=== PATIENT | female | born 1980 | race Caucasian/White ===

== ENCOUNTER 2016-08-02 21:54 | Inpatient (IN) | payer OTHER ==
[~2016-08-02] VITALS: Ht 160 cm; Wt 61.7 kg
[~2016-08-02 21:54] MED LIST: ROPIVACAINE 40 MG/20 ML AMP EP ONE
[2016-08-02] MEDS ORDERED: LR 1,000 ML IV SCH (22:07)
[2016-08-02] MEDS ORDERED: LR 1,000 ML IV ONE (22:07)
[2016-08-02] MEDS ORDERED: NALBUPHINE HCL 10 MG/ML AMP IVP PRN (22:15)
[2016-08-02 22:25] LABS: BASOPHILS % (AUTO) 0.2 % (0.0-2.0); EOSINOPHILS % (AUTO) 0.1 % (0.0-4.0); HEMATOCRIT 39.9 % (36-48); HEMOGLOBIN 13.6 g/dL (12.0-16.0); LYMPHOCYTES # (AUTO) 1.5 K/uL (1.0-5.5); LYMPHOCYTES % (AUTO) 8.4 % (20.5-51.5); MEAN CORPUSCULAR HEMOGLOBIN 27 pg (27-31); MEAN CORPUSCULAR HGB CONC 34 % (32-36); MEAN CORPUSCULAR VOLUME 79 fL (79.0-98.0); MONOCYTES # (AUTO) 0.8 K/uL (0.0-1.0); MONOCYTES % (AUTO) 4.5 % (1.7-9.3); NEUTROPHILS % (AUTO) 86.8 % (40.0-70.0); PLATELET COUNT (AUTO) 234 K/uL (130-430); RED BLOOD CELL COUNT(AUTO) 5.02 MIL/uL (4.2-6.2); RED CELL DISTRIBUTION WIDTH 13.9 % (9.0-15.0); WHITE BLOOD COUNT (AUTO) 18.3 K/uL (4.8-10.8)
[2016-08-02] MEDS ORDERED: fentaNYL CITRATE/PF 100 MCG/2 ML AMP ONE (22:55)
[2016-08-02] MEDS ORDERED: FENT2mCg/mL-ROPIVA0.2%/NS EPID 150 ML EP ONE (22:57)
[2016-08-02] MEDS: OXYTOCIN/NORMAL SALINE 1,000 ML IV SCH (23:35)
[2016-08-02] MEDS ORDERED: LR 500 ML IV ONE (23:52)
[2016-08-02] MEDS ORDERED: CITRIC ACID/SODIUM CITRATE 30 ML UDC ONE (23:58)
[2016-08-03] MEDS ORDERED: ePHEDrine sulfate 50 MG/ML VIAL IVP PRN
[2016-08-03] MEDS ORDERED: FENT2mCg/mL-ROPIVA0.2%/NS EPID 150 ML EP SCH
[2016-08-03] MEDS ORDERED: fentaNYL CITRATE/PF 100 MCG/2 ML AMP EP ONE
[2016-08-03 01:57] VITALS: BP 129/86; RESP 18; TEMP 98.3
[2016-08-03] MEDS: OXYTOCIN/NORMAL SALINE 1,000 ML IV SCH (02:48)
[2016-08-03] MEDS ORDERED: CITRIC ACID/SODIUM CITRATE 30 ML UDC PO ONE (03:00)
[2016-08-03] MEDS ORDERED: LR 1,000 ML IV SCH ×3 (10:50→12:12)
[2016-08-03] MEDS ORDERED: OXYTOCIN/NORMAL SALINE 1,000 ML IV ONE (10:52)
[2016-08-03] MEDS ORDERED: CEFAZOLIN 2 GM IVPB PREMIX 50 ML IV ONE (11:00)
[2016-08-03] MEDS ORDERED: LANOLIN 7 GM OINT. TP PRN (11:00)
[2016-08-03] MEDS ORDERED: RHO(D) IMMUNE GLOBULIN/MALTOSE 1500 UNITS/1.3 ML (WINHRO) IM PRN (11:00)
[2016-08-03] MEDS ORDERED: SENNOSIDES/DOCUSATE SODIUM 1 TAB TABLET(SENOKOT-S) PO PRN (11:00)
[2016-08-03] MEDS ORDERED: MEASLES,MUMPS&RUBELLA VACC/PF 12500 UNIT/0.5 ML VIAL SUBQ PRN (11:00)
[2016-08-03] MEDS ORDERED: ANUSOL 1 EA SUPP.RECT (PREPARATION H) RC PRN (11:00)
[2016-08-03] MEDS ORDERED: BISACODYL 10 MG/SUPPOSITORY RC PRN (11:00)
[2016-08-03] MEDS ORDERED: OXYCODONE/ACETAMINOPHEN 5-325 TABLET PO PRN ×2 (11:00)
[2016-08-03] MEDS ORDERED: MEPERIDINE HCL/PF 25 MG/ML DISP.SYRIN IVP PRN (12:15)
[2016-08-03] MEDS ORDERED: METOCLOPRAMIDE HCL 10 MG/2 ML VIAL IVP PRN (12:15)
[2016-08-03] MEDS ORDERED: MEPERIDINE HCL/PF 50 MG/ML AMP IVP PRN ×2 (12:15)
[2016-08-03] MEDS ORDERED: KETOROLAC TROMETHAMINE 60 MG/2 ML VIAL IM PRN (12:15)
[2016-08-03] MEDS ORDERED: DIPHENHYDRAMINE INJ 50 MG/ML VIAL IM PRN (12:15)
[2016-08-03] MEDS ORDERED: MORPHINE SULFATE 10MG/10ML PF AMP EP SCH (12:15)
[2016-08-03] MEDS ORDERED: ONDANSETRON HCL 4 MG/2 ML VIAL IVP PRN (12:15)
[2016-08-03] MEDS ORDERED: NALOXONE HCL 0.4 MG/ML AMP (NARCAN) IVP PRN (12:15)
[2016-08-03 13:05] VITALS: BP 98/53
[2016-08-03] MEDS ORDERED: LR 1,000 ML IV.SOLN IV ONE (14:00)
[2016-08-03] MEDS ORDERED: NS IRRIG SOLN 1000 ML IR ONE (14:00)
[2016-08-03] MEDS ORDERED: LIDOCAINE PF 2%, 200 MG/10 ML AMPUL.LUER (EPIDURAL) INJ ONE (14:00)
[2016-08-03] MEDS ORDERED: MORPHINE SULFATE 10MG/10ML PF AMP ONE (14:00)
[2016-08-03] MEDS ORDERED: ONDANSETRON HCL 4 MG/2 ML VIAL ONE (14:00)
[2016-08-03] MEDS ORDERED: OXYTOCIN 10 UNIT/ML VIAL ONE (14:00)
[2016-08-03] MEDS: CEFAZOLIN 1 GM IVPB PREMIX 50 ML IV SCH (17:59)
[2016-08-03] MEDS ORDERED: TEMAZEPAM 15 MG CAPSULE PO PRN (21:00)
[2016-08-04] MEDS ORDERED: KETOROLAC TROMETHAMINE 30 MG VIAL IVP SCH
[2016-08-04] MEDS: IBUPROFEN 600 MG TABLET PO SCH
[2016-08-04] MEDS: KETOROLAC TROMETHAMINE 30 MG VIAL IM SCH ×3 (00:41→17:55)
[2016-08-04] MEDS: CEFAZOLIN 1 GM IVPB PREMIX 50 ML IV SCH (06:20)
[2016-08-04 06:52] LABS: BASOPHILS % (AUTO) 0.2 % (0.0-2.0); EOSINOPHILS # (AUTO) 0.1 K/uL (0.0-0.4); EOSINOPHILS % (AUTO) 0.5 % (0.0-4.0); HEMATOCRIT 32.5 % (36-48); HEMOGLOBIN 10.9 g/dL (12.0-16.0); LYMPHOCYTES # (AUTO) 1.8 K/uL (1.0-5.5); LYMPHOCYTES % (AUTO) 11.9 % (20.5-51.5); MEAN CORPUSCULAR HEMOGLOBIN 28 pg (27-31); MEAN CORPUSCULAR HGB CONC 34 % (32-36); MEAN CORPUSCULAR VOLUME 83 fL (79.0-98.0); MONOCYTES % (AUTO) 6.5 % (1.7-9.3); NEUTROPHILS # (AUTO) 12.2 K/uL (1.8-7.7); NEUTROPHILS % (AUTO) 80.9 % (40.0-70.0); PLATELET COUNT (AUTO) 142 K/uL (130-430); RED BLOOD CELL COUNT(AUTO) 3.94 MIL/uL (4.2-6.2); RED CELL DISTRIBUTION WIDTH 14.2 % (9.0-15.0); WHITE BLOOD COUNT (AUTO) 15.1 K/uL (4.8-10.8)
[2016-08-04] MEDS: SIMETHICONE 80 MG TAB.CHEW PO PRN ×2 (12:02→17:55)
[2016-08-04] MEDS: DOCUSATE SODIUM 100 MG CAPSULE PO PRN ×2 (12:02→17:55)
[2016-08-05] MEDS: IBUPROFEN 600 MG TABLET PO SCH ×3 (06:00→17:41)
[2016-08-05] MEDS: SIMETHICONE 80 MG TAB.CHEW PO PRN ×2 (08:54→15:40)
[2016-08-05] MEDS: DOCUSATE SODIUM 100 MG CAPSULE PO PRN (08:54)
[2016-08-06] MEDS ORDERED: IBUPROFEN 600 MG TABLET ONE (05:39)
[2016-08-06] MEDS: IBUPROFEN 600 MG TABLET PO SCH ×3 (06:00→12:07)
[2016-08-06] MEDS: DOCUSATE SODIUM 100 MG CAPSULE PO PRN (09:31)
== END 2016-08-06 13:45 | disposition home or self-care (01) | DRG 766 ==
LOC: SPU 21:54
PROVIDERS: ADMIT Specialist; ATTEND Specialist
PROC: 10D00Z1 Extraction of Products of Conception, Low, Open Approach (ICD-10-PCS; principal; 2016-08-04)
PROC: 0UB00ZZ Excision of Right Ovary, Open Approach (ICD-10-PCS; 2016-08-04)
PROC: 3E0S3CZ (ICD-10-PCS; 2016-08-04)
DX: O62.1 Secondary uterine inertia (principal); Z37.0 Single live birth; O77.0 Labor and delivery complicated by meconium in amniotic fluid; Z3A.42 42 weeks gestation of pregnancy; O09.513 Supervision of elderly primigravida, third trimester; O99.52 Diseases of the respiratory system complicating childbirth; J45.909 Unspecified asthma, uncomplicated
CPT/HCPCS: 36415; 81002-TC; 85025; 86886; 86900; 86901; 88305; 88307; 94760; A4618; J0690; J1885; J2001; J2274; J2405; J2590; J2795; J3010; J7120